=== PATIENT | male | born 1975 | race Two or more races ===

== ENCOUNTER 2017-03-20 13:32 | Emergency (ER) | payer OTHER ==
[~2017-03-20] VITALS: Ht 160 cm; Wt 79.4 kg
[~2017-03-20 13:32] MED LIST: AMOX1TAB61 PO; PRED20TA PO
[2017-03-20 14:00] VITALS: BP 122/80
--- NOTE | 2017-03-20 15:36 | RAD ---
Indication pain in the eye. Headache. Noncontrast images of the head were obtained. Note is made of a previous examination 06/05/2008. The calvarium appears unremarkable. The visualized paranasal sinuses appear normal. No subdural or epidural hematoma is seen. There is no evidence of hemorrhage. No mass or midline shift is seen. An acute finding is not apparent. IMPRESSION: No acute finding seen in the head PQRS Compliance Statement: One or more of the following individualized dose reduction techniques were utilized for this examination: 1. Automated exposure control 2. Adjustment of the mA and/or kV according to patient size 3. Use of iterative reconstruction technique
[2017-03-20 16:02] LABS: BASO % 1 % (0-3); EOS % 1 % (0-3); HEMATOCRIT 46.6 % (39.0-53.0); HEMOGLOBIN 16.1 g/dL (13.0-17.5); LYMPH # 2.9 x10^3/uL (1.0-4.8); LYMPH % 33 % (24-48); MEAN CORPUSCULAR HEMOGLOBIN 32 pg (25-35); MEAN CORPUSCULAR HGB CONC 35 g/dL (31-37); MEAN CORPUSCULAR VOLUME 94 fL (79-100); MONO % 10 % (0-9); NEUT % 56 % (31-73); PLATELET COUNT 291 x10^3/uL (140-400); RED BLOOD COUNT 4.97 x10^6/uL (4.30-5.70); RED CELL DISTRIBUTION WIDTH 12.7 % (11.5-14.5); WHITE BLOOD COUNT 8.8 x10^3/uL (4.0-11.0)
[2017-03-20 16:16] LABS: CALCIUM 9.7 mg/dL (8.5-10.1); CREATININE 0.8 mg/dL (0.7-1.3); GFR 105.5; POTASSIUM 4.2 mmol/L (3.5-5.1)
[2017-03-20 16:37] LABS: PROTHROMBIN TIME PATIENT 12.5 SEC (11.7-14.0)
[2017-03-20] MEDS ORDERED: TRAM-29 PO (16:59)
--- NOTE | 2017-03-20 16:59 | PHYS DOC ---
Past Medical History Past Medical History: No Pertinent History Past Surgical History: Other Additional Past Surgical Histo: right first finger surgery Alcohol Use: Occasionally Drug Use: None Adult General Chief Complaint Chief Complaint: EYE PROBLEMS HPI HPI Patient is a 41 year old male with no significant medical history who presents today complaining of a chronic frontal headache that radiates to his right eye that has been occurring intermittently for the last 2 years. Patient states he has been seen in the emergency room as well as by a specialist for this headache and eye pain. He states they recommended he follows up with another specialist for the eye as well as the head. Patient presents today stating he would like us to find out why he keeps getting these headaches. We spent an incredible amount of time with this patient trying to understand if there is anything new about his headaches. He states there is nothing new. He states he just wants to find out why he gets this headaches that causes right eye to be painful. Patient denies any vision loss. Corset Maker line was used for [place]. Review of Systems Review of Systems Constitutional: Denies fever or chills [] Eyes: Denies change in visual acuity, redness, or eye pain [] HENT: Denies nasal congestion or sore throat [] Respiratory: Denies cough or shortness of breath [] Cardiovascular: No additional information not addressed in HPI [] GI: Denies abdominal pain, nausea, vomiting, bloody stools or diarrhea [] : Denies dysuria or hematuria [] Musculoskeletal: Denies back pain or joint pain [] Integument: Denies rash or skin lesions [] Neurologic: Head pain radiating to the right eye Endocrine: Denies polyuria or polydipsia [] Allergies Allergies Allergies Coded Allergies Type Severity Reaction Last Updated Verified No Known Drug Allergies 03/20/17 No Physical Exam Physical Exam Constitutional: Well developed, well nourished, no acute distress, non-toxic appearance. [] HENT: Normocephalic, atraumatic, bilateral external ears normal, oropharynx moist, no oral exudates, nose normal. [] Eyes: PERRLA, EOMI, conjunctiva normal, no discharge. Fundal Exam is normal Neck: Normal range of motion, no tenderness, supple, no stridor. [] Cardiovascular:Heart rate regular rhythm, no murmur [] Lungs & Thorax: Bilateral breath sounds clear to auscultation [] Abdomen: Bowel sounds normal, soft, no tenderness, no masses, no pulsatile masses. [] Skin: Warm, dry, no erythema, no rash. [] Back: No tenderness, no CVA tenderness. [] Extremities: No tenderness, no cyanosis, no clubbing, ROM intact, no edema. [] Neurologic: Alert and oriented X 3, normal motor function, normal sensory function, no focal deficits noted. Cranial nerves II through XII intact Psychologic: Affect normal, judgement normal, mood normal. [] Current Patient Data Vital Signs Vital Signs Date Time Temp Pulse Resp B/P Pulse Ox O2 Delivery O2 Flow Rate FiO2 03/20/17 14:00 97.5 78 16 122/80 99 Room Air 97.5 Lab Values Laboratory Tests Test 03/20/17 15:43 White Blood Count 8.8x10^3/uL (4.0-11.0) Red Blood Count 4.97x10^6/uL (4.30-5.70) Hemoglobin 16.1g/dL (13.0-17.5) Hematocrit 46.6% (39.0-53.0) Mean Corpuscular Volume 94fL (79-100) Mean Corpuscular Hemoglobin 32pg (25-35) Mean Corpuscular Hemoglobin Concent 35g/dL (31-37) Red Cell Distribution Width 12.7% (11.5-14.5) Platelet Count 291x10^3/uL (140-400) Neutrophils (%) (Auto) 56% (31-73) Lymphocytes (%) (Auto) 33% (24-48) Monocytes (%) (Auto) 10% (0-9) H Eosinophils (%) (Auto) 1% (0-3) Basophils (%) (Auto) 1% (0-3) Neutrophils # (Auto) 4.9x10^3uL (1.8-7.7) Lymphocytes # (Auto) 2.9x10^3/uL (1.0-4.8) Monocytes # (Auto) 0.9x10^3/uL (0.0-1.1) Eosinophils # (Auto) 0.1x10^3/uL (0.0-0.7) Basophils # (Auto) 0.0x10^3/uL (0.0-0.2) Sodium Level 139mmol/L (136-145) Potassium Level 4.2mmol/L (3.5-5.1) Chloride Level 102mmol/L (98-107) Carbon Dioxide Level 30mmol/L (21-32) Anion Gap 7 (6-14) Blood Urea Nitrogen 13mg/dL (8-26) Creatinine 0.8mg/dL (0.7-1.3) Estimated GFR (Cockcroft-Gault) 105.5 Glucose Level 103mg/dL (70-99) H Calcium Level 9.7mg/dL (8.5-10.1) Laboratory Tests 03/20/17 15:43 Laboratory Tests 03/20/17 15:43 EKG EKG [] Radiology/Procedures Radiology/Procedures [] Course & Med Decision Making Course & Med Decision Making Pertinent Labs and Imaging studies reviewed. (See chart for details) Patient is in the ED with her chronic frontal headache that radiates to his right eye that has been occurring for the last 2 years. He's been worked up before for this headache with eye pain before. He presents today requesting a reason why he keeps getting these headaches. He is [place]-speaking. Corset Maker line was used for [place]. We spent an incredible amount of time trying to understand if there is anything acute going on about this headache and how to help him today. Patient himself states there is nothing acute but he wants to be worked up to see why he has the headache. Patient has been told to follow-up with an visual merchandising specialist as well as a neurologist. He has not followed up. We did a CT of the head which was negative, lab work is negative. I explained to patient again he is to follow-up with the neurologist as well as her PCP and terrazzo layer. I provided all the information to patient. He is in no distress. His vitals are normal. Dragon Disclaimer Dragon Disclaimer This electronic medical record was generated, in whole or in part, using a voice recognition dictation system. Departure Departure Impression: Primary Impression: Chronic head pain Disposition: HOME, SELF-CARE Condition: STABLE Referrals: NO PCP (PCP) BONNIE SHANNON MD follow up with him for your eye SHERWIN HANSON MD follow up with her for primary care if you do not have a doctor MOHIT WHIPPLE MD follow up with her in one week Patient Instructions: General Headache Without Cause Additional Instructions: You were seen for an ongoing headache which radiates to the eye. Your work up was negative. We highly recommend you follow-up w1. Primary care doctor 2. Neurologist and 3. Delivery Tech. We provided do all this doctors to you. Scripts Tramadol Hcl (Ultram)50 Mg Tablet1 Tab PO Q6HRS #30 TAB Prov:FLASH MONTALVO APRN 03/20/17 FLASH MONTALVO APRN March 20, 2017 16:59
== END 2017-03-20 17:11 | disposition home or self-care (01) ==
LOC: ER 13:32
DX: G89.29 Other chronic pain (principal); R51 Headache; H57.11 Ocular pain, right eye
CPT/HCPCS: 36415; 70450; 80048; 85027; 85610; 85730; 99285-25